=== PATIENT | female | born 1940 | race Caucasian/White ===

== ENCOUNTER 2021-02-05 17:16 | Inpatient (IN) | payer OTHER ==
[~2021-02-05] VITALS: Ht 152.4 cm; Wt 54.4 kg
[2021-02-11] MEDS ORDERED: POM (MEDICAMENTO EN OP ×2 (09:28)
[2021-02-11] MEDS ORDERED: HYDROXYCHLOROQ200 MG PO (09:28)
[2021-02-11] MEDS ORDERED: PROTONIX40 MG PO (09:28)
[2021-02-11] MEDS ORDERED: TOPROL XL25 M1 PO (09:28)
[2021-02-11] MEDS ORDERED: Zestril PO (09:28)
[2021-02-11] MEDS ORDERED: PREDNISONE10 MG PO (09:28)
[2021-02-11] MEDS ORDERED: LIPITOR40 MG PO (09:28)
[2021-02-11] MEDS ORDERED: FAMOTIDINE20 MG PO (09:28)
[2021-02-11] MEDS ORDERED: Neurin-Sl Tablet Sl SL (09:28)
[2021-02-11] MEDS ORDERED: INTEGRA PLUS C1 EACH PO (09:28)
[2021-02-11] MEDS ORDERED: GABAPENTIN100 MG PO (09:28)
[2021-02-11] MEDS ORDERED: PYRIDOXINE HCL100 MG PO (09:28)
== END 2021-02-11 10:38 | disposition home or self-care (01) | DRG 281 ==
LOC: ER 17:16 → MEDI 23:24
PROVIDERS: ADMIT Internal Medicine; ATTEND Internal Medicine
PROC: 3E0F7SF Introduction of Other Gas into Respiratory Tract, Via Natural or Artificial Opening (ICD-10-PCS; principal; 2021-02-05)
PROC: 4A12X4Z Monitoring of Cardiac Electrical Activity, External Approach (ICD-10-PCS; 2021-02-05)
PROC: B24BZZZ Ultrasonography of Heart with Aorta (ICD-10-PCS; 2021-02-06)
DX: I21.4 Non-ST elevation (NSTEMI) myocardial infarction (principal); G81.94 Hemiplegia, unspecified affecting left nondominant side; I35.0 Nonrheumatic aortic (valve) stenosis; D64.9 Anemia, unspecified; R19.7 Diarrhea, unspecified; E83.42 Hypomagnesemia; E83.39 Other disorders of phosphorus metabolism; I10 Essential (primary) hypertension; E78.49 Other hyperlipidemia; K21.9 Gastro-esophageal reflux disease without esophagitis; M06.8A Other specified rheumatoid arthritis, other specified site; Z86.73 Personal history of transient ischemic attack (TIA), and cerebral infarction without residual deficits; Z20.822 Contact with and (suspected) exposure to COVID-19